=== PATIENT | female | born 1965 | race Caucasian/White ===

== ENCOUNTER 2017-07-08 09:15 | Outpatient (CLI) | payer OTHER | END 2017-07-08 12:11 | disposition home or self-care (01) | LOC: RAD 09:15 | DX: J32.9 Chronic sinusitis, unspecified (principal) ==

== ENCOUNTER 2021-08-18 05:50 | Day surgery (SDC) | payer OTHER ==
[~2021-08-18 05:50] MED LIST: ATIVAN1 M1 PO; CALAN PO; PLAQUENIL PO; RESTORIL PO; RISPERIDONE0.5 MG PO; WELLBUTRIN SR150 MG PO
== END 2021-08-18 18:00 | disposition home or self-care (01) ==
LOC: CIR.AMB 05:50
PROVIDERS: ATTEND Surgery
DX: C50.411 Malignant neoplasm of upper-outer quadrant of right female breast (principal); N64.89 Other specified disorders of breast; R59.0 Localized enlarged lymph nodes; I10 Essential (primary) hypertension; G62.9 Polyneuropathy, unspecified; Z92.21 Personal history of antineoplastic chemotherapy